=== PATIENT | female | born 1975 | race American Indian/Alaskan Native ===

== ENCOUNTER 2017-04-03 15:40 | Emergency (ER) | payer OTHER ==
--- NOTE | 2017-04-03 16:56 | Emergency Department Report ---
Entered by LATISHA SALINAS, acting as scribe for ESTEFANY NARANJO NP. Chief Complaint: Extremity Problem,Nontraumatic Stated Complaint: SARCOIDOSIS/SWELLING/PUSS Time Seen by Provider: 04/03/17 16:36 - HPI History of Present Illness: Pt c/o stage 3 sarcoidosis. Pt c/o lower extremity swelling that began 5 days ago. Associated weeping from bilateral lower legs that began last night. Reports cough and SOB Denies HTN and IDDM Notes compliancy to prednisone 40 mg Uses tobacco products daily - ROS Review of Systems: All system are negative unless stated in HPI above. - Exam Vital Signs: Vital Signs 04/03/17 16:26 Temperature 98.4 F Pulse Rate 18 L Respiratory 16 Rate Blood Pressure 157/117 O2 Sat by Pulse 100 Oximetry Physical Exam: General: well nourished, well developed, 41 year old female in no acute distress and nontoxic in appearance Neck exam: Normal inspection, no lymphadenopathy Respiratory exam: normal lung sounds bilaterally. No respiratory distress. No wheezes, rhonchi, or rales Cardiovascular Exam: Regular rate, normal rhythm. No systolic murmur, diastolic murmur, rubs, or gallop Musculoskeletal: +2 edema to bilateral legs with weeping noted MSE screening note: Focused history and physical exam performed. Due to findings the following was ordered: See above ED Medical Decision Making - Medical Decision Making Patient screened by provider in triage area. Labs sent in for patient. Patient to be seen by MD on main ED side. ED Disposition for MSE Condition: Stable This documentation as recorded by the scribe,LATISHA SALINAS,accurately reflects the service I personally performed and the decisions made by me, ESTEFANY NARANJO, RAYRAY.
[2017-04-03 17:18] LABS: Hematocrit 33.3 % (30.3-42.9); Hemoglobin 10.5 gm/dl (10.1-14.3); Mean Corpuscular HGB Conc 32 % (30-34); Mean Corpuscular Volume 74 fl (79-97); Platelet Count 282 K/mm3 (140-440); Red Blood Count 4.47 M/mm3 (3.65-5.03); Red Cell Distribution Width 16.9 % (13.2-15.2); White Blood Count 5.3 K/mm3 (4.5-11.0)
[2017-04-03 17:27] LABS: Mean Corpuscular Hemoglobin 24 pg (28-32)
[2017-04-03 17:34] LABS: Alanine Aminotransferase 20 units/L (7-56); Albumin 3.7 g/dL (3.9-5); Albumin/Globulin Ratio 0.9 %; Alkaline Phosphatase 76 units/L (35-129); Anion Gap 18 mmol/L; Blood Urea Nitrogen 12 mg/dL (7-17); Calcium 8.6 mg/dL (8.4-10.2); Carbon Dioxide 24 mmol/L (22-30); Chloride 101.4 mmol/L (98-107); Glucose 92 mg/dL (65-100); Potassium 4.4 mmol/L (3.6-5.0); Sodium 139 mmol/L (137-145); Total Protein 7.9 g/dL (6.3-8.2)
[2017-04-03 18:31] LABS: Bilirubin,Urine NEG (Negative); Blood,Urine NEG (Negative); Ketones,Urine NEG (Negative); Leukocyte Esterase,Urine NEG (Negative); Mucus,Urine FEW /HPF; Nitrite,Urine NEG (Negative); Protein,Urine <15 mg/dL mg/dL (Negative); WBC,Urine < 1.0 /HPF (0.0-6.0)
[2017-04-03 18:35] LABS: Basophils % (Manual) 0 % (0.0-1.8); Blastocytes % (Manual) 0 %
[2017-04-03 18:36] LABS: Hypochromasia 1+
[2017-04-03 18:37] LABS: Diff Status Complete; Ovalocytes 1+; Platelet Estimate Consistent w Auto
[2017-04-04] MEDS ORDERED: LASIX PO ONE (00:59)
--- NOTE | 2017-04-04 01:08 | Emergency Department Report ---
HPI - General Chief Complaint: Extremity Problem,Nontraumatic Time Seen by Provider: 04/03/17 16:52 - HPI HPI: This is a 41-year-old Afro[place] female presents to the emergency department from home with complaint of a 5-6 day history of lower extremity swelling that has gotten to the point now where they are starting to weep. She denies any chest pain, shortness of breath, back pain, fever, nausea, vomiting. She has a history of stage III sarcoidosis that was recently diagnosed. She denies any history of CHF, DVT. The patient denies any recent surgery but does take a 2.5 hour trip to [place] about every other week. She is not taken anything for her symptoms prior to presentation. She does not have a primary care doctor but goes to her cloth measurer, Dr. Ang, for most of her medical needs. ED Past Medical Hx - Medications Home Medications: Home Medications Medication Instructions Recorded Confirmed Last Taken Type Furosemide [Lasix TAB] 40 mg PO QDAY #5 tablet 04/04/17 Unknown Rx ED Review of Systems ROS: Stated complaint: SARCOIDOSIS/SWELLING/PUSS Other details as noted in HPI Comment: All other systems reviewed and negative Constitutional: denies: chills, fever Eyes: denies: eye pain, eye discharge, vision change ENT: denies: ear pain, throat pain Respiratory: denies: cough, shortness of breath, wheezing Cardiovascular: edema. denies: chest pain, palpitations Gastrointestinal: denies: abdominal pain, nausea, diarrhea Genitourinary: denies: urgency, dysuria, discharge Musculoskeletal: denies: back pain, joint swelling, arthralgia Skin: denies: rash, lesions Neurological: denies: headache, weakness, paresthesias Physical Exam - Physical Exam Vital Signs: Vital Signs 04/03/17 04/04/17 16:26 00:40 Temperature 98.4 F 97.8 F Pulse Rate 18 L 99 H Respiratory 16 20 Rate Blood Pressure 157/117 Blood Pressure 171/107 [Left] O2 Sat by Pulse 100 100 Oximetry Physical Exam: GENERAL: The patient is well-developed well-nourished. HEENT: Normocephalic. Atraumatic. Extraocular motions are intact. Patient has moist mucous membranes. Pupils equal reactive to light bilaterally. NECK: Supple. Trachea is midline. CHEST/LUNGS: Clear to auscultation. There is no respiratory distress noted. HEART/CARDIOVASCULAR: Regular. There is no tachycardia. There is no gallop rub or murmur. ABDOMEN: Abdomen is soft, nontender. Patient has normal bowel sounds. There is no abdominal distention. Obese habitus. SKIN: There is 2+ pitting edema to the bilateral lower extremities. No current weeping or ulcerations. NEURO: The patient is awake, alert, and oriented. The patient is cooperative. The patient has no focal neurologic deficits. The patient has normal speech. MUSCULOSKELETAL: There is no tenderness or deformity. There is no limitation range of motion. There is no evidence of acute injury. 2 over 4 pedal pulses. Cap refill less than 2 seconds. ED Course Vital Signs 04/03/17 04/04/17 16:26 00:40 Temperature 98.4 F 97.8 F Pulse Rate 18 L 99 H Respiratory 16 20 Rate Blood Pressure 157/117 Blood Pressure 171/107 [Left] O2 Sat by Pulse 100 100 Oximetry ED Medical Decision Making - Lab Data Result diagrams: 04/03/17 16:59 04/03/17 16:59 - Medical Decision Making 41-year-old female presents with a 5 day history of lower extremity swelling is gotten to the point where it is oozing and/or weeping. Physical exam there is no erythema and they are not warm or fluctuant so it does not appear to be consistent with a cellulitis or abscess. There is some pitting edema. BNP is less than 200 and it is low suspicion for CHF. On top of that the patient does not have any chest pain, shortness of breath, orthopnea. The rest the patient' s labs are unremarkable. She has good palpable pedal pulses and cap refill. Patient was given a dose of Lasix and will be given a 5 day course of Lasix to help with diuresis. We discussed compression and elevation. On top of that she will be given a referral/order to return for outpatient imaging to rule out bilateral lower extremity DVTs with Doppler ultrasound. If positive she will be redirected back to the emergency department. If negative she has been given referrals for primary care physicians. She will return to the ER if any worsening of her symptoms or any acute distress. - Differential Diagnosis venous stasis, DVT, cellulitis, CHF Critical Care Time: No Critical care attestation.: If time is entered above; I have spent that time in minutes in the direct care of this critically ill patient, excluding procedure time. ED Disposition Clinical Impression: Lower extremity edema Disposition: TO HOME OR SELFCARE Is pt being admited?: No Condition: Stable Instructions: Leg Edema (ED) Additional Instructions: Please follow-up with a primary care doctor as soon as possible. I have given you a prescription/order to return to the outpatient imaging center later today , Friday, to have a bilateral lower extremity venous Doppler ultrasound to rule out blood clots as the source of your swelling. Call the number provided to make an appointment. If positive, he will be redirected to the emergency department. If negative, proceed to follow-up with a primary care physician. Return to the emergency department with any worsening of her symptoms, shortness of breath, chest pain, or any acute distress. Prescriptions: Furosemide [Lasix TAB] 40 mg PO QDAY #5 tablet Referrals: COURTNEY BAIRD [Other] - 3-5 Days Forms: Work/School Release Form(ED) Time of Disposition: 03:41
[2017-04-04 04:03] VITALS: BP 151/90
--- NOTE | 2017-04-04 07:25 | XRay Report ---
ROUTINE CHEST, TWO VIEWS: HISTORY: Shortness of breath, CHF. No comparison. Patchy bilateral lung infiltrates are identified. This could represent bilateral pneumonia. No pleural effusion or pneumothorax is appreciated. Normal heart size and pulmonary vascularity. Normal bony thorax. IMPRESSION: Bilateral patchy lung infiltrates. Correlate for pneumonia.
== END 2017-04-04 04:02 | disposition home or self-care (01) ==
LOC: ED 15:40
DX: R60.0 Localized edema (principal)
CPT/HCPCS: 36415; 71020; 80053; 81001; 81025; 83880; 84484; 85007; 85025; 93005; 93010; 99284

== ENCOUNTER 2018-01-20 17:49 | Inpatient (IN) | payer MEDICARE, OTHER ==
[2018-01-20] MEDS ORDERED: DUONEB *Not for PRN Use IH ONE (18:30)
[2018-01-20 20:01] LABS: Hematocrit 29.9 % (30.3-42.9); Hemoglobin 9.4 gm/dl (10.1-14.3); Mean Corpuscular HGB Conc 31 % (30-34); Mean Corpuscular Volume 71 fl (79-97); Platelet Count 295 K/mm3 (140-440); Red Blood Count 4.22 M/mm3 (3.65-5.03)
[2018-01-20 20:04] LABS: Mean Corpuscular Hemoglobin 22 pg (28-32); Red Cell Distribution Width 20.4 % (13.2-15.2)
[2018-01-20 20:07] LABS: INR 0.95 (0.87-1.13)
[2018-01-20 20:30] LABS: Alanine Aminotransferase 26 units/L (7-56); Albumin 3.2 g/dL (3.9-5); BUN/Creatinine Ratio 25; Blood Urea Nitrogen 10 mg/dL (7-17); Calcium 8.2 mg/dL (8.4-10.2); Hemolysis Index 0
[2018-01-20] MEDS ORDERED: NACL 0.9% 500 ML 500 ML IV ONE (20:39)
--- NOTE | 2018-01-20 21:05 | Emergency Department Report ---
HPI - General Chief Complaint: High BP Time Seen by Provider: 01/20/18 20:14 - HPI HPI: 42-year-old female presents to the emergency department with complaint of a one-week history of very elevated blood pressure, without a history of hypertension, headache with intermittent blurry vision, a productive cough, shortness of breath that worsens with exertion. She denies any chest pain, lower extremity edema or any neurological deficits. The patient has a history of stage III sarcoidosis. She is not currently oxygen dependent at home but says that she was prescribed oxycodone in the past but she was resistant to it and that prescription has run out but she is scheduled to see her coil assembler on January 27 and expects to be started on oxygen at that time. The patient is also currently 3 months at 12 weeks in 2 days. However the patient says that in conjunction with her CERTIFIED CODING SPECIALIST, Dr. Car, the plan is to terminate her as it is taking a toll on her health. Patient has not taken much for her symptoms representation. With this she is with 2 live children. No recent travel or sick contacts at home. ED Past Medical Hx - Past Medical History Additional medical history: Sarcodosis - Surgical History Additional Surgical History: c sect x 2 - Social History Smoking Status: Former Smoker Substance Use Type: None - Medications Home Medications: Home Medications Medication Instructions Recorded Confirmed Last Taken Type Furosemide [Lasix TAB] 40 mg PO QDAY #5 tablet 04/04/17 Unknown Rx ED Review of Systems ROS: Stated complaint: HYPERTENSIVE/3 MONTHS Other details as noted in HPI Comment: All other systems reviewed and negative Constitutional: denies: chills, fever Eyes: vision change (blurry). denies: eye pain, eye discharge ENT: denies: ear pain, throat pain Respiratory: cough, shortness of breath Cardiovascular: denies: chest pain, edema Gastrointestinal: denies: abdominal pain, nausea, diarrhea Genitourinary: denies: urgency, dysuria, discharge Musculoskeletal: denies: back pain, joint swelling, arthralgia Skin: denies: rash, lesions Neurological: headache. denies: numbness Physical Exam - Physical Exam Vital Signs: Vital Signs 01/20/18 01/20/18 01/20/18 18:01 18:09 18:10 Temperature 98.5 F Pulse Rate 120 H 126 H 121 H Respiratory 24 20 29 H Rate Blood Pressure 173/108 O2 Sat by Pulse 95 93 Oximetry 01/20/18 01/20/18 01/20/18 18:11 18:12 18:14 Temperature Pulse Rate 121 H 114 H 113 H Respiratory 21 29 H 22 Rate Blood Pressure 180/112 180/112 180/112 O2 Sat by Pulse 95 99 99 Oximetry 01/20/18 01/20/18 01/20/18 18:15 18:19 18:20 Temperature 98.4 F Pulse Rate 112 H 112 H Respiratory 20 16 Rate Blood Pressure 151/104 151/104 O2 Sat by Pulse 100 98 Oximetry 01/20/18 01/20/18 01/20/18 18:26 18:30 18:36 Temperature Pulse Rate 111 H 101 H 101 H Respiratory 17 23 24 Rate Blood Pressure 151/104 142/93 142/93 O2 Sat by Pulse 100 100 100 Oximetry 01/20/18 01/20/18 01/20/18 18:40 18:45 18:50 Temperature Pulse Rate 104 H 97 H 106 H Respiratory 21 32 H 14 Rate Blood Pressure 142/93 142/88 142/88 O2 Sat by Pulse 100 100 100 Oximetry 01/20/18 01/20/18 01/20/18 18:56 19:00 19:06 Temperature Pulse Rate 107 H 94 H 105 H Respiratory 16 32 H 30 H Rate Blood Pressure 142/88 134/89 134/89 O2 Sat by Pulse 99 100 Oximetry 01/20/18 01/20/18 01/20/18 19:10 19:15 19:20 Temperature Pulse Rate 106 H 99 H 110 H Respiratory 26 H 22 13 Rate Blood Pressure 134/89 139/79 139/79 O2 Sat by Pulse 100 100 100 Oximetry 01/20/18 01/20/18 01/20/18 19:26 19:30 19:36 Temperature Pulse Rate 108 H 109 H 112 H Respiratory 17 26 H 12 Rate Blood Pressure 139/79 139/79 139/79 O2 Sat by Pulse 100 99 100 Oximetry 01/20/18 01/20/18 01/20/18 19:40 19:45 19:50 Temperature Pulse Rate 109 H 110 H 110 H Respiratory 19 16 22 Rate Blood Pressure 139/79 135/86 135/86 O2 Sat by Pulse 99 98 100 Oximetry 01/20/18 01/20/18 01/20/18 19:56 20:00 20:06 Temperature Pulse Rate 116 H 110 H 108 H Respiratory 22 29 H 36 H Rate Blood Pressure 135/86 139/88 139/88 O2 Sat by Pulse 99 99 98 Oximetry 01/20/18 01/20/18 01/20/18 20:10 20:15 20:20 Temperature Pulse Rate 112 H 113 H 111 H Respiratory 37 H 16 37 H Rate Blood Pressure 139/88 135/80 135/80 O2 Sat by Pulse 97 95 99 Oximetry 01/20/18 01/20/18 20:26 20:30 Temperature Pulse Rate 113 H 99 H Respiratory 24 27 H Rate Blood Pressure 135/80 125/68 O2 Sat by Pulse 98 98 Oximetry Physical Exam: GENERAL: The patient is well-developed well-nourished. HENT: Normocephalic. Atraumatic. Patient has moist mucous membranes. EYES: Extraocular motions are intact. Pupils equal reactive to light bilaterally. NECK: Supple. Trachea is midline. CHEST/LUNGS: There is some rhonchi heard throughout the lungs. There is some tachypnea but no accessory muscle use. Productive cough heard during examination. There is no respiratory distress noted. HEART/CARDIOVASCULAR: Regular. There is mild to moderate tachycardia. There is no murmur. ABDOMEN: Abdomen is soft, nontender. Patient has normal bowel sounds. SKIN: Skin is warm and dry. There is some mild nonpitting bilateral lower extremity swelling. NEURO: The patient is awake, alert, and oriented. The patient is cooperative. The patient has no focal neurologic deficits. The patient has normal speech. MUSCULOSKELETAL: There is no tenderness or deformity. There is no evidence of acute injury. ED Course Vital Signs 01/20/18 01/20/18 01/20/18 18:01 18:09 18:10 Temperature 98.5 F Pulse Rate 120 H 126 H 121 H Respiratory 24 20 29 H Rate Blood Pressure 173/108 O2 Sat by Pulse 95 93 Oximetry 01/20/18 01/20/18 01/20/18 18:11 18:12 18:14 Temperature Pulse Rate 121 H 114 H 113 H Respiratory 21 29 H 22 Rate Blood Pressure 180/112 180/112 180/112 O2 Sat by Pulse 95 99 99 Oximetry 01/20/18 01/20/18 01/20/18 18:15 18:19 18:20 Temperature 98.4 F Pulse Rate 112 H 112 H Respiratory 20 16 Rate Blood Pressure 151/104 151/104 O2 Sat by Pulse 100 98 Oximetry 01/20/18 01/20/18 01/20/18 18:26 18:30 18:36 Temperature Pulse Rate 111 H 101 H 101 H Respiratory 17 23 24 Rate Blood Pressure 151/104 142/93 142/93 O2 Sat by Pulse 100 100 100 Oximetry 01/20/18 01/20/18 01/20/18 18:40 18:45 18:50 Temperature Pulse Rate 104 H 97 H 106 H Respiratory 21 32 H 14 Rate Blood Pressure 142/93 142/88 142/88 O2 Sat by Pulse 100 100 100 Oximetry 01/20/18 01/20/18 01/20/18 18:56 19:00 19:06 Temperature Pulse Rate 107 H 94 H 105 H Respiratory 16 32 H 30 H Rate Blood Pressure 142/88 134/89 134/89 O2 Sat by Pulse 99 100 Oximetry 01/20/18 01/20/18 01/20/18 19:10 19:15 19:20 Temperature Pulse Rate 106 H 99 H 110 H Respiratory 26 H 22 13 Rate Blood Pressure 134/89 139/79 139/79 O2 Sat by Pulse 100 100 100 Oximetry 01/20/18 01/20/18 01/20/18 19:26 19:30 19:36 Temperature Pulse Rate 108 H 109 H 112 H Respiratory 17 26 H 12 Rate Blood Pressure 139/79 139/79 139/79 O2 Sat by Pulse 100 99 100 Oximetry 01/20/18 01/20/18 01/20/18 19:40 19:45 19:50 Temperature Pulse Rate 109 H 110 H 110 H Respiratory 19 16 22 Rate Blood Pressure 139/79 135/86 135/86 O2 Sat by Pulse 99 98 100 Oximetry 01/20/18 01/20/18 01/20/18 19:56 20:00 20:06 Temperature Pulse Rate 116 H 110 H 108 H Respiratory 22 29 H 36 H Rate Blood Pressure 135/86 139/88 139/88 O2 Sat by Pulse 99 99 98 Oximetry 01/20/18 01/20/18 01/20/18 20:10 20:15 20:20 Temperature Pulse Rate 112 H 113 H 111 H Respiratory 37 H 16 37 H Rate Blood Pressure 139/88 135/80 135/80 O2 Sat by Pulse 97 95 99 Oximetry 01/20/18 01/20/18 20:26 20:30 Temperature Pulse Rate 113 H 99 H Respiratory 24 27 H Rate Blood Pressure 135/80 125/68 O2 Sat by Pulse 98 98 Oximetry ED Medical Decision Making - Lab Data Result diagrams: 01/20/18 19:45 01/20/18 19:45 - Radiology Data Radiology results: report reviewed, image reviewed interpreted by me: Chest x-ray shows patchy infiltrates to the bilateral lungs with right greater than left. There could be some pulmonary vascular congestion. PROCEDURE: CT ANGIO CHEST TECHNIQUE: Computerized tomographic angiography of the chest was performed after the IV injection of iodinated nonionic contrast including image processing. The image data was postprocessed using 2-dimensional multiplanar reformatted (MPR) and 3-dimensional (MIP and/or volume rendered) techniques. HISTORY: SOB, elevated dimer COMPARISON: No prior studies are available for comparison. FINDINGS: There is suboptimal opacification of bilateral pulmonary arteries and their branches. However there are no obvious filling defects. Aorta is of normal caliber. Irregular areas of a consolidation are noted involving bilateral upper and lower lobes and right middle lobe. There is diffuse bronchial wall thickening involving bilateral lungs. No mass lesions are identified. Pleural spaces are clear. Nodular lesions are noted involving right hilar and infrahilar regions. There is evidence of precarinal and prevascular lymphadenopathy. Mild degree left axillary lymphadenopathy is noted. Aorta is of normal caliber. There is mild cardiomegaly. Lymphadenopathy is also noted along the lesser curvature of stomach and a superior margin of pancreas. IMPRESSION: Bilateral peribronchial thickening is consistent with chronic bronchitis Irregular areas of consolidation involving bilateral lungs are consistent with pneumonia There is evidence of right hilar, right infrahilar, mediastinal, left axillary and upper abdominal lymphadenopathy as described above. Mild cardiomegaly Pulmonary arterial tree is suboptimally visualized. No obvious pulmonary embolism is noted. [place] [facility] [place]ictated By: SHIELA VAUGHAN Electronically Authenticated By: SHIELA VAUGHAN Signed Date/Time: 01/20/18 8315 PROCEDURE: CT HEAD/BRAIN WO CON TECHNIQUE: Computerized tomography of the head was performed without contrast material. HISTORY: DOMINGUEZ with hypertension COMPARISON: No prior studies are available for comparison. FINDINGS: Skull and scalp: Normal. Paranasal sinuses: Normal. Ventricles and subarachnoid spaces: Normal. Cerebrum: No evidence of hemorrhage, acute infarction or mass . Cerebellum and brainstem: No evidence of hemorrhage, acute infarction or mass. Vasculature: Normal. Comments: A CSF density lesion measuring 1.7 x 2.0 centimeters is noted in the anterior left temporal fossa. IMPRESSION: No acute intracranial abnormality. A CSF density lesion in the anterior left temporal fossa is most consistent with the an arachnoid cyst. Comparison with any prior studies would be of help. Transcribed By: [facility] [place]ictated By: SHIELA VAUGHAN Electronically Authenticated By: SHIELA VAUGHAN Signed Date/Time: 01/20/18 4040 - Medical Decision Making 42-year-old female presents the emergency department with a complaint of very elevated blood pressure and some shortness of breath with a cough and a headache. The patient is about 3 months . However in conjunction with her CERTIFIED CODING SPECIALIST, and since it is taking a toll on her health, the patient has decided that the will be terminated once she has gotten permission from her coil assembler to be able to get appropriate anesthesia to get the procedure done secondary to her sarcoidosis. This is relevant since the patient was getting x-ray imaging, CT imaging and receiving IV medications. I explained her that we could shield the abdomen and do what is possible to minimize radiation towards the and that she will have to sign consent forms, but the patient says that she is more worried about her own health and wants to "get right for my other 2 kids" and reiterates that she plans to terminate the and would like to proceed with whatever evaluation and treatment is necessary. It should be noted that we did get a heart tones of about 144 bpm. The blood pressure was not an issue at first but towards the end of her ED course, the patient does display very high blood pressure and required a moderate dose of labetalol to come down to a more reasonable level. For the patient's tachycardia, she was given IV fluid but continues to have some mild to moderate tachycardia. Chest x-ray shows some patchy infiltrates to the bilateral lungs with right greater than left concerning for some pneumonia but also could be fluid. However BMP is very low and therefore this does not appear to be CHF. She has a d-dimer that is elevated at about [address] angiography was done that shows no pulmonary embolism but does show bilateral pneumonia. CT head did not show any bleed, shift, mass or any acute process. The patient does not have any elevation in her liver function tests, does not have any significant proteinuria but does have the elevated blood pressure and therefore could be displaying signs of preeclampsia. However the patient will be admitted for the bilateral pneumonia and was accepted for admission by the hospitalist, Dr. Duncan. - Differential Diagnosis pneumonia, COPD, CHF, PE Critical Care Time: No Critical care attestation.: If time is entered above; I have spent that time in minutes in the direct care of this critically ill patient, excluding procedure time. ED Disposition Clinical Impression: Hypertensive urgency Pneumonia Qualifiers: Pneumonia type: due to unspecified organism Laterality: unspecified laterality Lung location: unspecified part of lung Qualified Code(s): J18.9 - Pneumonia, unspecified organism Qualifiers: Weeks of gestation: 12 weeks Qualified Code(s): Z3A.12 - 12 weeks gestation of Dyspnea Qualifiers: Dyspnea type: shortness of breath Qualified Code(s): R06.02 - Shortness of breath Disposition: OP ADMIT IP TO THIS HOSP Is pt being admited?: Yes Condition: Stable Time of Disposition: :09
[2018-01-20] MEDS ORDERED: NACL ONE (22:15)
--- NOTE | 2018-01-20 22:17 | XRay Report ---
FINAL REPORT EXAM: XR CHEST 1V AP HISTORY: SOB TECHNIQUE: AP portable view(s) of the chest obtained. PRIORS: None. FINDINGS: No mediastinal shift. Cardiac silhouette is not enlarged. Patchy right greater than left perihilar and bibasilar opacities. Patchy upper lung opacities. Minimal blunting of the left costophrenic angle. No pneumothorax. IMPRESSION: Right greater than left lower lung predominant airspace disease with possible trace left pleural effusion. Follow-up to resolution is recommended.
[2018-01-20 22:50] LABS: Anisocytosis 1+; Band Neutrophils # (Manual) 0.1 K/mm3; Basophils % (Manual) 0 % (0.0-1.8); Platelet Estimate Consistent w Auto; Total Cells Counted 100
--- NOTE | 2018-01-20 23:34 | Cat Scan Report ---
FINAL REPORT PROCEDURE: CT HEAD/BRAIN WO CON TECHNIQUE: Computerized tomography of the head was performed without contrast material. HISTORY: DOMINGUEZ with hypertension COMPARISON: No prior studies are available for comparison. FINDINGS: Skull and scalp: Normal. Paranasal sinuses: Normal. Ventricles and subarachnoid spaces: Normal. Cerebrum: No evidence of hemorrhage, acute infarction or mass . Cerebellum and brainstem: No evidence of hemorrhage, acute infarction or mass. Vasculature: Normal. Comments: A CSF density lesion measuring 1.7 x 2.0 centimeters is noted in the anterior left temporal fossa. IMPRESSION: No acute intracranial abnormality. A CSF density lesion in the anterior left temporal fossa is most consistent with the an arachnoid cyst. Comparison with any prior studies would be of help.
--- NOTE | 2018-01-20 23:58 | Cat Scan Report ---
FINAL REPORT PROCEDURE: CT ANGIO CHEST TECHNIQUE: Computerized tomographic angiography of the chest was performed after the IV injection of iodinated nonionic contrast including image processing. The image data was postprocessed using 2-dimensional multiplanar reformatted (MPR) and 3-dimensional (MIP and/or volume rendered) techniques. HISTORY: SOB, elevated dimer COMPARISON: No prior studies are available for comparison. FINDINGS: There is suboptimal opacification of bilateral pulmonary arteries and their branches. However there are no obvious filling defects. Aorta is of normal caliber. Irregular areas of a consolidation are noted involving bilateral upper and lower lobes and right middle lobe. There is diffuse bronchial wall thickening involving bilateral lungs. No mass lesions are identified. Pleural spaces are clear. Nodular lesions are noted involving right hilar and infrahilar regions. There is evidence of precarinal and prevascular lymphadenopathy. Mild degree left axillary lymphadenopathy is noted. Aorta is of normal caliber. There is mild cardiomegaly. Lymphadenopathy is also noted along the lesser curvature of stomach and a superior margin of pancreas. IMPRESSION: Bilateral peribronchial thickening is consistent with chronic bronchitis Irregular areas of consolidation involving bilateral lungs are consistent with pneumonia There is evidence of right hilar, right infrahilar, mediastinal, left axillary and upper abdominal lymphadenopathy as described above. Mild cardiomegaly Pulmonary arterial tree is suboptimally visualized. No obvious pulmonary embolism is noted.
[2018-01-21] MEDS ORDERED: cefTRIAXone 1 GM in NACL 0.9% 20 ML IV ONE (00:06)
[2018-01-21] MEDS ORDERED: ZITHROMAX 500 MG in NACL 0.9% 250ML 250 ML IV ONE (00:06)
[2018-01-21 03:52] LABS: Bacteria,Urine 1+ /HPF (Negative); Bilirubin,Urine NEG (Negative); Blood,Urine NEG (Negative); Color,Urine Yellow (Yellow); Protein,Urine <15 mg/dL mg/dL (Negative)
[2018-01-21] MEDS ORDERED: NORMODYNE IV ONE (04:46)
[2018-01-21] MEDS ORDERED: XOPENEX IH ONE (05:23)
[2018-01-21] MEDS: HEPARIN SUB-Q SCH ×2 (06:47→13:13)
--- NOTE | 2018-01-21 08:07 | History and Physical Report ---
History of Present Illness Date of examination: 01/21/18 Date of admission: 01/21/18 01:09 Chief complaint: Elevated BP, shortness of breath,headache History of present illness: patient is 42 yo who is 12 weeks , presents with headache, shortness of breath. Found to have elevated BP, pneumonia. Past History Past Medical History: sarcoidosis, other (Obesity) Past Surgical History: , Other (lung biopsy) Social history: , full code. denies: smoking (Quit 2 months ago), alcohol abuse (quit 2 months ago) Family history: CAD, diabetes, hypertension Medications and Allergies Allergies Allergy/AdvReac Type Severity Reaction Status Date / Time No Known Allergies Allergy Unverified 04/03/17 16:25 Home Medications Medication Instructions Recorded Confirmed Last Taken Type Furosemide [Lasix TAB] 40 mg PO QDAY #5 tablet 04/04/17 Unknown Rx Active Meds: Active Medications Heparin Sodium (Porcine) (Heparin) 5,000 unit SUB-Q Q8HR HUMA Last Admin: 01/21/18 06:47 Dose: 5,000 unit Exam - Physical Exam Narrative exam: Gen appearance: Not in acute distress, lying in bed,obese HEENT:Normocephalic, atraumatic Neck:supple, no JVD Lungs: Clear to auscultation bilat Heart: S1 and S2 regular, no murmurs, rubs or gallop Abdomen: soft, non tender, non distended, normal bowel sounds Ext: No edema, no clubbing, no cyanosis Neuro: Awake,alert,oriented x 3, moves all extremities, non focal Psych: Normal mood - Constitutional Vitals: Temp Pulse Resp BP Pulse Ox 98.4 F 113 H 22 128/72 96 01/21/18 07:40 01/21/18 07:40 01/21/18 07:40 01/21/18 07:40 01/21/18 07:40 Results - Labs CBC & Chem 7: 01/20/18 19:45 01/20/18 19:45 Labs: Abnormal lab results 01/20/18 01/20/18 01/20/18 Range/Units 19:45 19:45 20:45 Hgb 9.4 L (10.1-14.3) gm/dl Hct 29.9 L (30.3-42.9) % MCV 71 L (79-97) fl MCH 22 L (28-32) pg RDW 20.4 H (13.2-15.2) % Seg Neuts % (Manual) 79.0 H (40.0-70.0) % Lymphocytes % (Manual) 11.0 L (13.4-35.0) % Monocytes % (Manual) 8.0 H (0.0-7.3) % Lymphocytes # (Manual) 0.6 L (1.2-5.4) K/mm3 D-Dimer 517.47 H (0-234) ng/mlDDU Sodium 133 L (137-145) mmol/L Chloride 97.3 L (98-107) mmol/L Creatinine 0.4 L (0.7-1.2) mg/dL Calcium 8.2 L (8.4-10.2) mg/dL Albumin 3.2 L (3.9-5) g/dL Ur Specific [place] (1.003-1.030) 01/21/18 Range/Units Unknown Hgb (10.1-14.3) gm/dl Hct (30.3-42.9) % MCV (79-97) fl MCH (28-32) pg RDW (13.2-15.2) % Seg Neuts % (Manual) (40.0-70.0) % Lymphocytes % (Manual) (13.4-35.0) % Monocytes % (Manual) (0.0-7.3) % Lymphocytes # (Manual) (1.2-5.4) K/mm3 D-Dimer (0-234) ng/mlDDU Sodium (137-145) mmol/L Chloride (98-107) mmol/L Creatinine (0.7-1.2) mg/dL Calcium (8.4-10.2) mg/dL Albumin (3.9-5) g/dL Ur Specific [place] > 1.030 H (1.003-1.030) Assessment and Plan Pneumonia. admitted to tele. iv Abx. 12 weeks. Consult her Ore Trimmer, Dr. Car Sarcoidosis. She follows with Dr. Pineda. Will consult Pulm protection consultant Hypertensive urgency. Start labetalol. Hydralazine i prn Full code status discussed with Dr. Patel
[2018-01-21] MEDS ORDERED: PROVENTIL IH PRN (10:02)
[2018-01-21] MEDS ORDERED: LEVAQUIN 500MG/100ML 500 MG/100 ML BAG IV SCH (11:00)
--- NOTE | 2018-01-21 12:19 | Ultrasound Report ---
OB LIMITED INDICATION: heart tones. COMPARISON: None similar. TECHNIQUE: Transabdominal grayscale ultrasound with Doppler interrogation. Gestation: [place] Heart Rate: 165 BPM CONCLUSION: Findings, as above.
[2018-01-21] MEDS: LEVAQUIN 750MG/150ML 750 MG/150 ML BAG IV SCH (12:37)
[2018-01-21] MEDS: NORMODYNE PO SCH ×2 (12:56→21:16)
--- NOTE | 2018-01-21 16:08 | Consultation ---
History of Present Illness Consult date: 01/21/18 Requesting physician: JAMES DESIR Reason for consult: other (12 weeks ) History of present illness: Mrs. Carrera is a 42-year-old black female of our practice para 2143 whose estimated gestational age of 12 weeks 2 days. Was hospitalized with pneumonia severe sarcoidosis and severe hypertension. This patient was complicated by a severe medical problems as had a consultation with the perinatologist who estimate approximately 50% mortality rate and patient's with severe medical problems such as these and the patient had made a decision to in the due to severe strain on her health. Spoke with the patient again today her intention is still to terminate this . Past History Past Medical History: hypertension, other (sarcoidosis) Past Surgical History: section, other (lung biopsy) - Obstetrical History Expected Date of Delivery: 08/02/18 Actual Gestation: 12 Week(s) 3 Day(s) : 8 Para: 3 Hx # Term Pregnancies: 2 Number of Pregnancies: 1 Spontaneous Abortions: 4 (1 ectopic) Induced : 0 Number of Living Children: 3 Medications and Allergies Allergies Allergy/AdvReac Type Severity Reaction Status Date / Time No Known Allergies Allergy Unverified 04/03/17 16:25 Home Medications Medication Instructions Recorded Confirmed Last Taken Type Furosemide [Lasix TAB] 40 mg PO QDAY #5 tablet 04/04/17 Unknown Rx Active Meds: Active Medications Albuterol (Proventil) 2.5 mg IH Q4HRT PRN PRN Reason: Shortness Of Breath Levofloxacin/Dextrose (Levaquin 750mg/150ml) 750 mg in 150 mls @ 150 mls/hr IV Q24H HUMA; Protocol Last Admin: 01/21/18 12:37 Dose: 150 mls/hr Labetalol HCl (Normodyne) 200 mg PO BID HUMA Last Admin: 01/21/18 12:56 Dose: 200 mg - Vital Signs Vital signs: Vital Signs Temp Pulse Resp BP Pulse Ox 98.5 F 120 H 24 173/108 95 01/20/18 18:01 01/20/18 18:01 01/20/18 18:01 01/20/18 18:01 01/20/18 18:01 Temp Pulse Resp BP Pulse Ox 98.4 F 106 H 13 142/81 87 01/21/18 07:40 01/21/18 12:56 01/21/18 09:51 01/21/18 12:56 01/21/18 09:51 - Physical Exam Breasts: Positive: deferred Abdomen: Positive: soft Results Result Diagrams: 01/20/18 19:45 01/20/18 19:45 Abnormal lab results 01/20/18 01/20/18 01/20/18 Range/Units 19:45 19:45 20:45 Hgb 9.4 L (10.1-14.3) gm/dl Hct 29.9 L (30.3-42.9) % MCV 71 L (79-97) fl MCH 22 L (28-32) pg RDW 20.4 H (13.2-15.2) % Seg Neuts % (Manual) 79.0 H (40.0-70.0) % Lymphocytes % (Manual) 11.0 L (13.4-35.0) % Monocytes % (Manual) 8.0 H (0.0-7.3) % Lymphocytes # (Manual) 0.6 L (1.2-5.4) K/mm3 D-Dimer 517.47 H (0-234) ng/mlDDU Sodium 133 L (137-145) mmol/L Chloride 97.3 L (98-107) mmol/L Creatinine 0.4 L (0.7-1.2) mg/dL Calcium 8.2 L (8.4-10.2) mg/dL Albumin 3.2 L (3.9-5) g/dL Ur Specific [place] (1.003-1.030) 01/21/18 Range/Units Unknown Hgb (10.1-14.3) gm/dl Hct (30.3-42.9) % MCV (79-97) fl MCH (28-32) pg RDW (13.2-15.2) % Seg Neuts % (Manual) (40.0-70.0) % Lymphocytes % (Manual) (13.4-35.0) % Monocytes % (Manual) (0.0-7.3) % Lymphocytes # (Manual) (1.2-5.4) K/mm3 D-Dimer (0-234) ng/mlDDU Sodium (137-145) mmol/L Chloride (98-107) mmol/L Creatinine (0.7-1.2) mg/dL Calcium (8.4-10.2) mg/dL Albumin (3.9-5) g/dL Ur Specific [place] > 1.030 H (1.003-1.030) All other labs normal. Assessment and Plan - Patient Problems (1) Sarcoidosis Current Visit: Yes Status: Chronic (2) Pneumonia Current Visit: Yes Status: Acute Qualifiers: Pneumonia type: due to unspecified organism Laterality: unspecified laterality Lung location: unspecified part of lung Qualified Code(s): J18.9 - Pneumonia, unspecified organism (3) Current Visit: Yes Status: Acute Qualifiers: Weeks of gestation: 12 weeks Qualified Code(s): Z3A.12 - 12 weeks gestation of Plan to address problem: This is a patient with severe medical problems who has made a decision to terminate the due to severe threat to her own health. Therefore in her mind health decisions should be weighed him preservation of her life versus continuing . Patient intention is to terminate the when she is well enough to do so. Please contact me with any questions that she might have, I will be available (4) Dyspnea Current Visit: Yes Status: Acute Qualifiers: Dyspnea type: shortness of breath Qualified Code(s): R06.02 - Shortness of breath; R06.00 - Dyspnea, unspecified; R06.01 - Orthopnea (5) Hypertensive urgency Current Visit: Yes Status: Acute
[2018-01-22] MEDS ORDERED: FLEET MINERAL OIL PR ONE (08:49)
--- NOTE | 2018-01-22 08:59 | Progress Note ---
Assessment and Plan Assessment and plan: Pneumonia. admitted to [facility]. iv Abx. 12 weeks. Patient was evaluated by Dr. Patel has evaluated her. Sarcoidosis. She follows with Dr. Pineda. Pulm following Hypertensive urgency. BP improved on labetalol. Hydralazine iv prn Full code status discussed with Dr. Patel, Gynecology History Interval history: Less shortness of breath Hospitalist Physical - Physical exam Narrative exam: Gen appearance: Not in acute distress, lying in bed,obese HEENT:Normocephalic, atraumatic Neck:supple, no JVD Lungs: Clear to auscultation bilat Heart: S1 and S2 regular, no murmurs, rubs or gallop Abdomen: soft, non tender, non distended, normal bowel sounds Ext: No edema, no clubbing, no cyanosis Neuro: Awake,alert,oriented x 3, moves all extremities, non focal Psych: Normal mood - Constitutional Vitals: Temp Pulse Resp BP Pulse Ox 98.3 F 95 H 20 100/65 99 01/22/18 08:02 01/22/18 08:02 01/22/18 08:02 01/22/18 08:02 01/22/18 08:02 Results - Labs CBC & Chem 7: 01/20/18 19:45 01/20/18 19:45 Labs: Laboratory Last Values WBC 5.2 K/mm3 (4.5-11.0) 01/20/18 19:45 RBC 4.22 M/mm3 (3.65-5.03) 01/20/18 19:45 Hgb 9.4 gm/dl (10.1-14.3) L 01/20/18 19:45 Hct 29.9 % (30.3-42.9) L 01/20/18 19:45 MCV 71 fl (79-97) L 01/20/18 19:45 MCH 22 pg (28-32) L 01/20/18 19:45 MCHC 31 % (30-34) 01/20/18 19:45 RDW 20.4 % (13.2-15.2) H 01/20/18 19:45 Plt Count 295 K/mm3 (140-440) 01/20/18 19:45 Cameron % (Auto) Site Damage Prevention Technician 01/20/18 19:45 Add Manual Diff Complete 01/20/18 19:45 Total Counted 100 01/20/18 19:45 Seg Neuts % (Manual) 79.0 % (40.0-70.0) H 01/20/18 19:45 Band Neutrophils % 1.0 % 01/20/18 19:45 Lymphocytes % (Manual) 11.0 % (13.4-35.0) L 01/20/18 19:45 Reactive Lymphs % (Man) 0 % 01/20/18 19:45 Monocytes % (Manual) 8.0 % (0.0-7.3) H 01/20/18 19:45 Eosinophils % (Manual) 1.0 % (0.0-4.3) 01/20/18 19:45 Basophils % (Manual) 0 % (0.0-1.8) 01/20/18 19:45 Metamyelocytes % 0 % 01/20/18 19:45 Myelocytes % 0 % 01/20/18 19:45 Promyelocytes % 0 % 01/20/18 19:45 Blast Cells % 0 % 01/20/18 19:45 Nucleated RBC % Not Reportable 01/20/18 19:45 Seg Neutrophils # Man 4.1 K/mm3 (1.8-7.7) 01/20/18 19:45 Band Neutrophils # 0.1 K/mm3 01/20/18 19:45 Lymphocytes # (Manual) 0.6 K/mm3 (1.2-5.4) L 01/20/18 19:45 Abs React Lymphs (Man) 0.0 K/mm3 01/20/18 19:45 Monocytes # (Manual) 0.4 K/mm3 (0.0-0.8) 01/20/18 19:45 Eosinophils # (Manual) 0.1 K/mm3 (0.0-0.4) 01/20/18 19:45 Basophils # (Manual) 0.0 K/mm3 (0.0-0.1) 01/20/18 19:45 Metamyelocytes # 0.0 K/mm3 01/20/18 19:45 Myelocytes # 0.0 K/mm3 01/20/18 19:45 Promyelocytes # 0.0 K/mm3 01/20/18 19:45 Blast Cells # 0.0 K/mm3 01/20/18 19:45 WBC Morphology Not Reportable 01/20/18 19:45 Hypersegmented Neuts Not Reportable 01/20/18 19:45 Hyposegmented Neuts Not Reportable 01/20/18 19:45 Hypogranular Neuts Not Reportable 01/20/18 19:45 Smudge Cells Not Reportable 01/20/18 19:45 Toxic Granulation Not Reportable 01/20/18 19:45 Toxic Vacuolation Not Reportable 01/20/18 19:45 Dohle Bodies Not Reportable 01/20/18 19:45 Pelger-Huet Anomaly Not Reportable 01/20/18 19:45 Rickie Rods Not Reportable 01/20/18 19:45 Platelet Estimate Consistent w auto 01/20/18 19:45 Clumped Platelets Not Reportable 01/20/18 19:45 Plt Clumps, EDTA Not Reportable 01/20/18 19:45 Large Platelets Not Reportable 01/20/18 19:45 Giant Platelets Not Reportable 01/20/18 19:45 Platelet Satelliting Not Reportable 01/20/18 19:45 Plt Morphology Comment Not Reportable 01/20/18 19:45 RBC Morphology Not Reportable 01/20/18 19:45 Dimorphic RBCs Not Reportable 01/20/18 19:45 Polychromasia Not Reportable 01/20/18 19:45 Hypochromasia Not Reportable 01/20/18 19:45 Poikilocytosis Not Reportable 01/20/18 19:45 Anisocytosis 1+ 01/20/18 19:45 Microcytosis Not Reportable 01/20/18 19:45 Macrocytosis Not Reportable 01/20/18 19:45 Spherocytes Not Reportable 01/20/18 19:45 Pappenheimer Bodies Not Reportable 01/20/18 19:45 Sickle Cells Not Reportable 01/20/18 19:45 Target Cells Not Reportable 01/20/18 19:45 Tear Drop Cells Not Reportable 01/20/18 19:45 Ovalocytes Not Reportable 01/20/18 19:45 Helmet Cells Not Reportable 01/20/18 19:45 [employer] Bodies Not Reportable 01/20/18 19:45 [place] Rings Not Reportable 01/20/18 19:45 Mary Cells Not Reportable 01/20/18 19:45 Bite Cells Not Reportable 01/20/18 19:45 Crenated Cell Not Reportable 01/20/18 19:45 Elliptocytes Not Reportable 01/20/18 19:45 Acanthocytes (Spur) Not Reportable 01/20/18 19:45 Rouleaux Not Reportable 01/20/18 19:45 Hemoglobin C Crystals Not Reportable 01/20/18 19:45 Schistocytes Not Reportable 01/20/18 19:45 Malaria parasites Not Reportable 01/20/18 19:45 Pravin Bodies Not Reportable 01/20/18 19:45 Hem Pathologist Commnt No 01/20/18 19:45 PT 13.1 Sec. (12.2-14.9) 01/20/18 19:45 INR 0.95 (0.87-1.13) 01/20/18 19:45 APTT 29.0 Sec. (24.2-36.6) 01/20/18 19:45 D-Dimer 517.47 ng/mlDDU (0-234) H 01/20/18 20:45 Sodium 133 mmol/L (137-145) L 01/20/18 19:45 Potassium 4.2 mmol/L (3.6-5.0) 01/20/18 19:45 Chloride 97.3 mmol/L (98-107) L 01/20/18 19:45 Carbon Dioxide 24 mmol/L (22-30) 01/20/18 19:45 Anion Gap 16 mmol/L 01/20/18 19:45 BUN 10 mg/dL (7-17) 01/20/18 19:45 Creatinine 0.4 mg/dL (0.7-1.2) L 01/20/18 19:45 Estimated GFR > 60 ml/min 01/20/18 19:45 BUN/Creatinine Ratio 25 % 01/20/18 19:45 Glucose 78 mg/dL (65-100) 01/20/18 19:45 Calcium 8.2 mg/dL (8.4-10.2) L 01/20/18 19:45 Total Bilirubin 0.30 mg/dL (0.1-1.2) 01/20/18 19:45 AST 32 units/L (5-40) 01/20/18 19:45 ALT 26 units/L (7-56) 01/20/18 19:45 Alkaline Phosphatase 122 units/L (35-129) 01/20/18 19:45 Troponin T < 0.010 ng/mL (0.00-0.029) 01/20/18 19:45 NT-Pro-B Natriuret Pep 49.47 pg/mL (0-450) 01/20/18 20:45 Total Protein 7.5 g/dL (6.3-8.2) 01/20/18 19:45 Albumin 3.2 g/dL (3.9-5) L 01/20/18 19:45 Albumin/Globulin Ratio 0.7 % 01/20/18 19:45 HCG, Qual Positive (Negative) 01/20/18 19:45 Urine Color Yellow (Yellow) 01/21/18 Unknown Urine Turbidity Clear (Clear) 01/21/18 Unknown Urine pH 6.0 (5.0-7.0) 01/21/18 Unknown Ur Specific [place] > 1.030 (1.003-1.030) H 01/21/18 Unknown Urine Protein <15 mg/dl mg/dL (Negative) 01/21/18 Unknown Urine Glucose (UA) Neg mg/dL (Negative) 01/21/18 Unknown Urine Ketones Neg mg/dL (Negative) 01/21/18 Unknown Urine Blood Neg (Negative) 01/21/18 Unknown Urine Nitrite Neg (Negative) 01/21/18 Unknown Urine Bilirubin Neg (Negative) 01/21/18 Unknown Urine Urobilinogen 2.0 mg/dL (<2.0) 01/21/18 Unknown Ur Leukocyte Esterase Neg (Negative) 01/21/18 Unknown Urine WBC (Auto) 1.0 /HPF (0.0-6.0) 01/21/18 Unknown Urine RBC (Auto) 1.0 /HPF (0.0-6.0) 01/21/18 Unknown U Epithel Cells (Auto) 4.0 /HPF (0-13.0) 01/21/18 Unknown Urine Bacteria (Auto) 1+ /HPF (Negative) 01/21/18 Unknown
--- NOTE | 2018-01-22 12:28 | Consultation ---
History of Present Illness Consult date: 01/22/18 Requesting physician: JAMES DESIR Reason for consult: other (sarcoid) History of present illness: 42 y/o female with biopsy proven sarcoid admitted with acute on chronic respiratory failure. CT performed and imaging is consistent with Sarcoid, doubt acute pneumonia. Patient was started on abx therapy and medication for BP control. Patient is followed by an outside pulm doc in [place]. She has not been able to see him on regular basis secondary to distance. She was on Prednisone at one point, 40 mg daily but she stopped taking and secondary to weight gain and concern for side effects told to her by her pharmacist. She is on oxygen at home. She also currently , but secondary to medical complications is going to terminate the . Past History Past Medical History: sarcoidosis, other (Obesity) Past Surgical History: , Other (lung biopsy) Social history: , full code. denies: smoking (Quit 2 months ago), alcohol abuse (quit 2 months ago) Family history: CAD, diabetes, hypertension Medications and Allergies Allergies Allergy/AdvReac Type Severity Reaction Status Date / Time No Known Allergies Allergy Unverified 04/03/17 16:25 Home Medications Medication Instructions Recorded Confirmed Last Taken Type Furosemide [Lasix TAB] 40 mg PO QDAY #5 tablet 04/04/17 01/22/18 1 Week Ago Rx ~01/15/18 Active Meds: Active Medications Albuterol (Proventil) 2.5 mg IH Q4HRT [facility] Levofloxacin/Dextrose (Levaquin 750mg/150ml) 750 mg in 150 mls @ 150 mls/hr IV Q24H [facility]; Protocol Last Admin: 01/21/18 12:37 Dose: 150 mls/hr Labetalol HCl (Normodyne) 200 mg PO BID HUMA Last Admin: 01/21/18 21:16 Dose: 200 mg Review of Systems All systems: negative Physical Examination Vital signs: Vital Signs Temp Pulse Resp BP Pulse Ox 98.5 F 120 H 24 173/108 95 01/20/18 18:01 01/20/18 18:01 01/20/18 18:01 01/20/18 18:01 01/20/18 18:01 General appearance: no acute distress, alert, other (morbidly obese with facial piercings) Eyes: non-icteric ENT: oropharynx moist, other (crowded malampatti of 2) Neck: supple, other (large in circumference) Effort: normal Ascultation: Bilateral: diminished breath sounds Percussion: Bilateral: not dull Tactile fremitus: Bilateral: normal Cardiovascular: regular rate and rhythm Gastrointestinal: normoactive bowel sounds, other (gravid uterus) Results - Laboratory Findings CBC and BMP: 01/20/18 19:45 01/20/18 19:45 PT/INR, D-dimer PT 13.1 Sec. (12.2-14.9) 01/20/18 19:45 INR 0.95 (0.87-1.13) 01/20/18 19:45 D-Dimer 517.47 ng/mlDDU (0-234) H 01/20/18 20:45 Abnormal lab findings: Abnormal Labs 01/20/18 01/20/18 01/20/18 19:45 19:45 20:45 Hgb 9.4 L Hct 29.9 L MCV 71 L MCH 22 L RDW 20.4 H Seg Neuts % (Manual) 79.0 H Lymphocytes % (Manual) 11.0 L Monocytes % (Manual) 8.0 H Lymphocytes # (Manual) 0.6 L D-Dimer 517.47 H Sodium 133 L Chloride 97.3 L Creatinine 0.4 L Calcium 8.2 L Albumin 3.2 L Ur Specific [place] 01/21/18 Unknown Hgb Hct MCV MCH RDW Seg Neuts % (Manual) Lymphocytes % (Manual) Monocytes % (Manual) Lymphocytes # (Manual) D-Dimer Sodium Chloride Creatinine Calcium Albumin Ur Specific [place] > 1.030 H - Diagnostic Findings CT scan - chest: report reviewed, image reviewed Assessment and Plan 42 y/o female with acute on chronic respiratory failure secondary to sarcoid flare from untreated sarcoid. 1. Will start patient on Prednisone 30mg that she will be on indefinitely until she follows up with our office 2. She will also be started on PCP prophylaxis with bactrim DS 1 tab daily 3. Abx therapy started by primary team, doubt superimposed infection, but if felt strongly would only treat with 5 days of therapy 4. Continue current nebs and inhalers from home until follows up in our office
[2018-01-22] MEDS: LEVAQUIN 750MG/150ML 750 MG/150 ML BAG IV SCH (13:14)
[2018-01-22] MEDS: NORMODYNE PO SCH ×2 (13:14→22:49)
[2018-01-22] MEDS: PROVENTIL IH SCH ×3 (15:00→19:57)
[2018-01-22] MEDS: DELTASONE PO SCH (22:48)
[2018-01-22] MEDS: BACTRIM DS PO SCH (22:48)
[2018-01-23] MEDS: PROVENTIL IH SCH ×5 (00:21→15:35)
[2018-01-23 09:29] VITALS: BP 125/76
[2018-01-23] MEDS: DELTASONE PO SCH (10:08)
[2018-01-23] MEDS: BACTRIM DS PO SCH (10:08)
[2018-01-23] MEDS: NORMODYNE PO SCH (10:09)
[2018-01-23] MEDS ORDERED: LEVAQUIN PO SCH (12:00)
--- NOTE | 2018-01-23 14:09 | Discharge Summary ---
Providers - Providers Date of Admission: 01/21/18 01:09 Date of discharge: 01/23/18 Attending physician: JAMES DESIR 01/21/18 Consult to Case Management [CONS] Routine Services Needed at Discharge: Other Notified:: case management Comment:: dc planning 01/21/18 07:24 Consult to Physician [CONS] Routine Comment: Consulting Provider: JEFF CAR Physician Instructions: Reason For Exam: 01/21/18 09:05 Consult to Physician [CONS] Routine Comment: Consulting Provider: LORIN BAUER Physician Instructions: Reason For Exam: Pneumonia,sarcoidosis Primary care physician: JEFF CAR Hospitalization Condition: Fair Disposition: DC-01 TO HOME OR SELFCARE Core Measure Documentation - Palliative Care Palliative Care/ Comfort Measures: Not Applicable - Core Measures Any of the following diagnoses?: none Exam - Constitutional Vitals: Temp Pulse Resp BP Pulse Ox 98.3 F 101 H 20 125/76 97 01/23/18 08:15 01/23/18 12:05 01/23/18 12:05 01/23/18 08:15 01/23/18 10:00 Plan Activity: advance as tolerated Diet: low fat, low cholesterol, low salt Special Instructions: home oxygen via, home health RN Additional Instructions: 1.Follow up with PCP in 3-5 days. 2.Follow up with Dr. Car, Ob/Gyne in 3-5 days. 3.Follow up with [facility] in 3-5 days. 4.Bactrim DS for PCP prophylaxis after termination of . 5.Home Oxygen at 4l/min NC Follow up with: JEFF CAR MD [Primary Care Provider] - 3-5 Days Prescriptions: Labetalol [Normodyne TAB] 200 mg PO BID #60 tablet Levofloxacin [Levaquin TAB] 750 mg PO Q24H #2 tablet predniSONE [Deltasone] 30 mg PO QDAY 30 Days tablet Sulfamethoxazole/Trimethoprim [Bactrim DS TAB] 1 each PO DAILY #30 tablet
--- NOTE | 2018-01-23 14:56 | Event Note ---
Date: 01/23/18 Patient will require Oxygen for home 4l/min
--- NOTE | 2018-01-23 18:52 | Progress Note ---
Hospitalist Physical - Constitutional Vitals: Temp Pulse Resp BP Pulse Ox 98.0 F 98 H 22 125/76 97 01/23/18 15:36 01/23/18 15:36 01/23/18 15:36 01/23/18 15:36 01/23/18 16:52 Results - Labs CBC & Chem 7: 01/20/18 19:45 01/20/18 19:45 Labs: Laboratory Last Values WBC 5.2 K/mm3 (4.5-11.0) 01/20/18 19:45 RBC 4.22 M/mm3 (3.65-5.03) 01/20/18 19:45 Hgb 9.4 gm/dl (10.1-14.3) L 01/20/18 19:45 Hct 29.9 % (30.3-42.9) L 01/20/18 19:45 MCV 71 fl (79-97) L 01/20/18 19:45 MCH 22 pg (28-32) L 01/20/18 19:45 MCHC 31 % (30-34) 01/20/18 19:45 RDW 20.4 % (13.2-15.2) H 01/20/18 19:45 Plt Count 295 K/mm3 (140-440) 01/20/18 19:45 Mcminn % (Auto) [employer] Operator 01/20/18 19:45 Add Manual Diff Complete 01/20/18 19:45 Total Counted 100 01/20/18 19:45 Seg Neuts % (Manual) 79.0 % (40.0-70.0) H 01/20/18 19:45 Band Neutrophils % 1.0 % 01/20/18 19:45 Lymphocytes % (Manual) 11.0 % (13.4-35.0) L 01/20/18 19:45 Reactive Lymphs % (Man) 0 % 01/20/18 19:45 Monocytes % (Manual) 8.0 % (0.0-7.3) H 01/20/18 19:45 Eosinophils % (Manual) 1.0 % (0.0-4.3) 01/20/18 19:45 Basophils % (Manual) 0 % (0.0-1.8) 01/20/18 19:45 Metamyelocytes % 0 % 01/20/18 19:45 Myelocytes % 0 % 01/20/18 19:45 Promyelocytes % 0 % 01/20/18 19:45 Blast Cells % 0 % 01/20/18 19:45 Nucleated RBC % Not Reportable 01/20/18 19:45 Seg Neutrophils # Man 4.1 K/mm3 (1.8-7.7) 01/20/18 19:45 Band Neutrophils # 0.1 K/mm3 01/20/18 19:45 Lymphocytes # (Manual) 0.6 K/mm3 (1.2-5.4) L 01/20/18 19:45 Abs React Lymphs (Man) 0.0 K/mm3 01/20/18 19:45 Monocytes # (Manual) 0.4 K/mm3 (0.0-0.8) 01/20/18 19:45 Eosinophils # (Manual) 0.1 K/mm3 (0.0-0.4) 01/20/18 19:45 Basophils # (Manual) 0.0 K/mm3 (0.0-0.1) 01/20/18 19:45 Metamyelocytes # 0.0 K/mm3 01/20/18 19:45 Myelocytes # 0.0 K/mm3 01/20/18 19:45 Promyelocytes # 0.0 K/mm3 01/20/18 19:45 Blast Cells # 0.0 K/mm3 01/20/18 19:45 WBC Morphology Not Reportable 01/20/18 19:45 Hypersegmented Neuts Not Reportable 01/20/18 19:45 Hyposegmented Neuts Not Reportable 01/20/18 19:45 Hypogranular Neuts Not Reportable 01/20/18 19:45 Smudge Cells Not Reportable 01/20/18 19:45 Toxic Granulation Not Reportable 01/20/18 19:45 Toxic Vacuolation Not Reportable 01/20/18 19:45 Dohle Bodies Not Reportable 01/20/18 19:45 Pelger-Huet Anomaly Not Reportable 01/20/18 19:45 Rickie Rods Not Reportable 01/20/18 19:45 Platelet Estimate Consistent w auto 01/20/18 19:45 Clumped Platelets Not Reportable 01/20/18 19:45 Plt Clumps, EDTA Not Reportable 01/20/18 19:45 Large Platelets Not Reportable 01/20/18 19:45 Giant Platelets Not Reportable 01/20/18 19:45 Platelet Satelliting Not Reportable 01/20/18 19:45 Plt Morphology Comment Not Reportable 01/20/18 19:45 RBC Morphology Not Reportable 01/20/18 19:45 Dimorphic RBCs Not Reportable 01/20/18 19:45 Polychromasia Not Reportable 01/20/18 19:45 Hypochromasia Not Reportable 01/20/18 19:45 Poikilocytosis Not Reportable 01/20/18 19:45 Anisocytosis 1+ 01/20/18 19:45 Microcytosis Not Reportable 01/20/18 19:45 Macrocytosis Not Reportable 01/20/18 19:45 Spherocytes Not Reportable 01/20/18 19:45 Pappenheimer Bodies Not Reportable 01/20/18 19:45 Sickle Cells Not Reportable 01/20/18 19:45 Target Cells Not Reportable 01/20/18 19:45 Tear Drop Cells Not Reportable 01/20/18 19:45 Ovalocytes Not Reportable 01/20/18 19:45 Helmet Cells Not Reportable 01/20/18 19:45 Reddy-Jackpot Bodies Not Reportable 01/20/18 19:45 Pierson Rings Not Reportable 01/20/18 19:45 Mary Cells Not Reportable 01/20/18 19:45 Bite Cells Not Reportable 01/20/18 19:45 Crenated Cell Not Reportable 01/20/18 19:45 Elliptocytes Not Reportable 01/20/18 19:45 Acanthocytes (Spur) Not Reportable 01/20/18 19:45 Rouleaux Not Reportable 01/20/18 19:45 Hemoglobin C Crystals Not Reportable 01/20/18 19:45 Schistocytes Not Reportable 01/20/18 19:45 Malaria parasites Not Reportable 01/20/18 19:45 Pravin Bodies Not Reportable 01/20/18 19:45 Hem Pathologist Commnt No 01/20/18 19:45 PT 13.1 Sec. (12.2-14.9) 01/20/18 19:45 INR 0.95 (0.87-1.13) 01/20/18 19:45 APTT 29.0 Sec. (24.2-36.6) 01/20/18 19:45 D-Dimer 517.47 ng/mlDDU (0-234) H 01/20/18 20:45 Sodium 133 mmol/L (137-145) L 01/20/18 19:45 Potassium 4.2 mmol/L (3.6-5.0) 01/20/18 19:45 Chloride 97.3 mmol/L (98-107) L 01/20/18 19:45 Carbon Dioxide 24 mmol/L (22-30) 01/20/18 19:45 Anion Gap 16 mmol/L 01/20/18 19:45 BUN 10 mg/dL (7-17) 01/20/18 19:45 Creatinine 0.4 mg/dL (0.7-1.2) L 01/20/18 19:45 Estimated GFR > 60 ml/min 01/20/18 19:45 BUN/Creatinine Ratio 25 % 01/20/18 19:45 Glucose 78 mg/dL (65-100) 01/20/18 19:45 Calcium 8.2 mg/dL (8.4-10.2) L 01/20/18 19:45 Total Bilirubin 0.30 mg/dL (0.1-1.2) 01/20/18 19:45 AST 32 units/L (5-40) 01/20/18 19:45 ALT 26 units/L (7-56) 01/20/18 19:45 Alkaline Phosphatase 122 units/L (35-129) 01/20/18 19:45 Troponin T < 0.010 ng/mL (0.00-0.029) 01/20/18 19:45 NT-Pro-B Natriuret Pep 49.47 pg/mL (0-450) 01/20/18 20:45 Total Protein 7.5 g/dL (6.3-8.2) 01/20/18 19:45 Albumin 3.2 g/dL (3.9-5) L 01/20/18 19:45 Albumin/Globulin Ratio 0.7 % 01/20/18 19:45 HCG, Qual Positive (Negative) 01/20/18 19:45 Urine Color Yellow (Yellow) 01/21/18 Unknown Urine Turbidity Clear (Clear) 01/21/18 Unknown Urine pH 6.0 (5.0-7.0) 01/21/18 Unknown Ur Specific Shannon > 1.030 (1.003-1.030) H 01/21/18 Unknown Urine Protein <15 mg/dl mg/dL (Negative) 01/21/18 Unknown Urine Glucose (UA) Neg mg/dL (Negative) 01/21/18 Unknown Urine Ketones Neg mg/dL (Negative) 01/21/18 Unknown Urine Blood Neg (Negative) 01/21/18 Unknown Urine Nitrite Neg (Negative) 01/21/18 Unknown Urine Bilirubin Neg (Negative) 01/21/18 Unknown Urine Urobilinogen 2.0 mg/dL (<2.0) 01/21/18 Unknown Ur Leukocyte Esterase Neg (Negative) 01/21/18 Unknown Urine WBC (Auto) 1.0 /HPF (0.0-6.0) 01/21/18 Unknown Urine RBC (Auto) 1.0 /HPF (0.0-6.0) 01/21/18 Unknown U Epithel Cells (Auto) 4.0 /HPF (0-13.0) 01/21/18 Unknown Urine Bacteria (Auto) 1+ /HPF (Negative) 01/21/18 Unknown
== END 2018-01-23 19:00 | disposition home or self-care (01) | DRG 781 ==
LOC: ED 17:49 → 3A 01-21 01:09 → 4A 01-21 05:08
PROVIDERS: ADMIT Internal Medicine; ATTEND Internal Medicine
DX: O16.1 Unspecified maternal hypertension, first trimester (principal); J18.9 Pneumonia, unspecified organism; O99.411 Diseases of the circulatory system complicating pregnancy, first trimester; O99.511 Diseases of the respiratory system complicating pregnancy, first trimester; D86.9 Sarcoidosis, unspecified; O99.211 Obesity complicating pregnancy, first trimester; E66.9 Obesity, unspecified; Z68.32 Body mass index [BMI] 32.0-32.9, adult; I16.0 Hypertensive urgency; Z82.49 Family history of ischemic heart disease and other diseases of the circulatory system; Z83.3 Family history of diabetes mellitus; Z87.891 Personal history of nicotine dependence; Z3A.12 12 weeks gestation of pregnancy
CPT/HCPCS: 36415; 70450; 71045; 71275; 76815; 80053; 81001; 83880; 84484; 84703; 85007; 85025; 85379; 85610; 85730; 87040; 94640; 94760; 96361; 96365; 96366; 96368; 96375; J0456; J0696; J1644; J1956; J7040; J7050; J7512; Q9967

== ENCOUNTER 2018-06-01 08:11 | Outpatient (CLI) | payer OTHER ==
[2018-06-01] MEDS ORDERED: PROVENTIL IH ONE (08:56)
== END 2018-06-01 08:12 | disposition home or self-care (01) ==
LOC: PF 08:11
PROVIDERS: ATTEND Internal Medicine
DX: I50.9 Heart failure, unspecified (principal); Z87.891 Personal history of nicotine dependence
CPT/HCPCS: 94060; 94640; 94729

== ENCOUNTER 2020-05-09 07:09 | Day surgery (SDC) | payer OTHER ==
[~2020-05-09 07:09] MED LIST: SODIUM CHLORIDE 0.9% 1000 ML 1,000 ML IV SCH
[2020-05-09] MEDS ORDERED: propofoL 200 MG/20 ML VIAL IV ONE (08:17)
--- NOTE | 2020-05-09 08:43 | Anesthesia Consultation ---
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
--- NOTE | 2020-05-09 08:43 | Anesthesia Day of Surgery ---
Anesthesia Day of Surgery - Day of Surgery Patient Examined: Yes Patient H&P Reviewed: Yes Patient is NPO: Yes
--- NOTE | 2020-05-09 09:12 | Operative Report ---
Operative Report Operative Report: DOS: 05/09/2020 SURGEON: Alan Starkey MD EGD with biopsy REPORT PREOPERATIVE DIAGNOSIS and POSTOPERATIVE DIAGNOSIS: anemia, rule out celiac disease ESTIMATED BLOOD LOSS: Minimal DESCRIPTION OF PROCEDURE: A high-resolution EGD scope was passed through the oropharynx, esophagus, stomach, and third portion of duodenum. The scope was carefully withdrawn. Retroflexion was performed in the stomach. At the end of the procedure, the scope was cleaned using normal technique. Vital signs monitored continuously throughout. SEDATION: Provided by Anesthesiology Services. COMPLICATIONS: None. FINDINGS: * No gross lesions in the duodenum. Biopsies were taken to rule out celiac disease. A total of 6 biopsies were taken, the first from the duodenal bulb, with each subsequent biopsies progressively distal with the last biopsy as distal as could be reached with the endoscope * No gross lesions in the stomach * GE junction 40 cm from the incisors * Remainder the exam was unremarkable RECOMMENDATIONS: Follow-up biopsy results Schedule telehealth follow-up visit in 1 month with me
--- NOTE | 2020-05-09 09:38 | Post Anesthesia Evaluation ---
- Post Anesthesia Evaluation Patient Participated: Yes Airway Patent: Yes Stable Respiratory Function: Yes (returned to baseline O2 requirement) Nausea/Vomiting: No Temp > 96.8F: Yes Pain Manageable: Yes Adequeate Hydration: Yes Anesthesia Complications: No
[2020-05-09 09:58] VITALS: BP 132/80
== END 2020-05-09 07:10 | disposition home or self-care (01) ==
LOC: GIO 07:09
PROVIDERS: ATTEND Student in an Organized Health Care Education/Training Program
DX: D64.9 Anemia, unspecified (principal); K31.89 Other diseases of stomach and duodenum; I10 Essential (primary) hypertension; E66.9 Obesity, unspecified; J18.9 Pneumonia, unspecified organism; Z98.890 Other specified postprocedural states; Z98.891 History of uterine scar from previous surgery; Z79.899 Other long term (current) drug therapy; Z87.891 Personal history of nicotine dependence; Z68.37 Body mass index [BMI] 37.0-37.9, adult
CPT/HCPCS: 43239; 88305; J2704; J7030